=== PATIENT | male | born 1995 ===

== ENCOUNTER 2021-07-20 12:13 | Emergency (ER) | payer BC ==
[2021-07-20] MEDS ORDERED: Sodium Chloride 0.9% 10 ML Syringe FLUSH PRN (12:50)
[2021-07-20] MEDS ORDERED: Iopamidol 755 Mg/ML 100 ML Bottle IVPUSH ONE (12:55)
== END 2021-07-20 14:38 | disposition home or self-care (01) ==
LOC: JD.ED 12:13
DX: R06.02 Shortness of breath (principal)
CPT/HCPCS: 36415; 71275; 80053; 85025; 99285; Q9967; 99284